=== PATIENT | male | born 1945 | race African-American/Black ===

== ENCOUNTER 2018-10-17 16:57 | Emergency (ER) | payer MEDICARE ==
[~2018-10-17] VITALS: Ht 188 cm; Wt 104.3 kg
--- OUTSIDE RECORDS SUMMARY | 2018-10-17 17:00 | XMS REPORT ---
Author Author [facility] Address Unknown Phone Unavailable Care Team Providers Care It Portfolio Manager Name Role Phone RASHEEDA GALLEGOS Unavailable Unavailable ZACHERY KAMARA Unavailable Unavailable Problems This patient has no known problems. Allergies, Adverse Reactions, Alerts This patient has no known allergies or adverse reactions. Medications This patient has no known medications. Encounters Start Date/Time End Date/Time Encounter Type Admission Type Attending Clinicians Care Facility Care Department Encounter ID 2017-06-10 15:11:49 2017-06-10 15:11:49 Outpatient [facility] [id number] 2017-06-09 15:47:37 2017-06-09 15:47:37 Emergency [facility] [id number] 2017-06-09 15:44:43 2017-06-09 15:44:43 Emergency [facility] [id number] 2017-06-09 13:24:20 2017-06-09 13:24:20 Outpatient [facility] [id number] Results Test Description Test Time Test Comments Text Results Atomic Results Result Comments TISSUE EXAM 2018-07-03 15:14:00 Surgical Pathology Report Case: [id number] Authorizing Provider: Rasheeda Gallegos MD Collected: 07/02/2018 0854 Ord ering Location: [facility] Received: 07/02/2018 1454 Pathologist: Prosper Alves MD Specimen: Lung, Left Lower Lobe, LLL LUNG BX - MASS PART A LEFT LOWER LOBE LUNG, 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 Signing Pathologist Direct Phone Line: [phone] signed by Prosper Alves MD on 07/03/2018 at 3:14 PMImmunohistochemical studies performed on block A1 demonstrate the n eoplastic cells to be positive for synaptophysin and chromogranin. They are negative for TTF1 and Napsin A. Proliferative index by Ki-67 is less than 2%. Mitotic index is counted at less than 1 per 10 high power field. 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 Clinical correlation is required. This case was reviewed with Dr. Mercy Marsh. [id number], 88530, [id number], [id number] of lung on imaging study Left lower lobe lung biopsy mass The specimen is received in a formalin-filled container labeled with the patient's information and labeled "left lower lobe lung biopsy mass" and consists of multiple fragments of hood-red soft tissue ranging from less than 0.1 to 0.2 cm, submitted entirely in A1. CG/ew Performed. The interpretation of this case included the use of immunohistochemistry or special stains. BLOCK A1- TTF1, NAPSIN A, KI-67, CHROMOGRANIN, SYNAPTOPHYSIN.Immunohistochemistry technical testing was performed at [facility], Pathology Laboratory where it was developed and its performance characteristics were determined. It has not been cleared or approved by the U.S. Food and Drug Administration. The FDA has determined that such clearance or approval is not necessary. The test is used for clinical purposes. It should not be regarded as investigational or for research. This laboratory is certified under the Clinical Laboratory Improvement Amendments of 1988 (CLIA-88) as qualified to perform high complexity clinical laboratory testing. POCT-GLUCOSE METER 2018-07-02 09:42:00 POC-GLUCOSE METER (BEAKER) (test wrfz=4223) 121 mg/dL 70-110 TESTED AT [facility] [address] [facility] [address] BASIC METABOLIC [id number] 08:13:00* Test Item Value Reference Range Comments SODIUM (BEAKER) (test qxbh=161) 142 meq/L 136-145 POTASSIUM (BEAKER) (test ahio=112) 5.0 meq/L 3.5-5.1 CHLORIDE (BEAKER) (test ozag=284) 110 meq/L 98-107 CO2 (BEAKER) (test dkfy=674) 22 meq/L 22-29 BLOOD UREA NITROGEN (BEAKER) (test ongp=504) 83 mg/dL 7-21 CREATININE (BEAKER) (test dhbv=272) 8.10 mg/dL 0.57-1.25 GLUCOSE RANDOM (BEAKER) (test ihuk=441) 115 mg/dL 70-105 CALCIUM (BEAKER) (test adnq=447) 8.8 mg/dL 8.4-10.2 EGFR (BEAKER) (test ddir=8548) 8 mL/min/1.73 sq m ESTIMATED GFR IS NOT ACCURATE CREATININE CLEARANCE IN PREDICTING GLOMERULAR FILTRATION RATE. ESTIMATED GFR IS NOT APPLICABLE FOR DIALYSIS PATIENTS. [id number] 08:02:00* Test Item Value Reference Range Comments PARTIAL THROMBOPLASTIN TIME (BEAKER) (test rlne=519) 36.0 seconds 22.5-36.0 PROTHROMBIN TIME/[id number] 08:01:00* Test Item Value Reference Range Comments PROTIME (BEAKER) (test dwws=142) 13.8 seconds 11.7-14.7 INR (BEAKER) (test qhlu=048) 1.1 <=5.9 RECOMMENDED COUMADIN/WARFARIN INR THERAPY RANGESSTANDARD DOSE: 2.0 - 3.0 Inclu lo: PROPHYLAXIS for venous thrombosis, systemic embolization; TREATMENT for jacob ous thrombosis and/or pulmonary embolus.HIGH RISK: Target INR is 2.5-3.5 for pat ients with mechanical heart valves.CBC W/PLT COUNT & AUTO [id number] 07:57:00* Test Item Value Reference Range Comments WHITE BLOOD CELL COUNT (BEAKER) (test geyv=958) 9.2 K/ L 3.5-10.5 RED BLOOD CELL COUNT (BEAKER) (test eqja=557) 2.82 M/ L 4.63-6.08 HEMOGLOBIN (BEAKER) (test wvgr=388) 8.3 GM/DL 13.7-17.5 HEMATOCRIT (BEAKER) (test dbme=005) 26.9 % 40.1-51.0 MEAN CORPUSCULAR VOLUME (BEAKER) (test xjyx=278) 95.4 fL 79.0-92.2 MEAN CORPUSCULAR HEMOGLOBIN (BEAKER) (test pmds=086) 29.4 pg 25.7-32.2 MEAN CORPUSCULAR HEMOGLOBIN CONC (BEAKER) (test vkqq=049) 30.9 GM/DL 32.3-36.5 RED CELL DISTRIBUTION WIDTH (BEAKER) (test vwpx=590) 16.8 % 11.6-14.4 PLATELET COUNT (BEAKER) (test ysbd=407) 199 K/CU MM 150-450 MEAN PLATELET VOLUME (BEAKER) (test pois=081) 11.2 fL 9.4-12.4 NUCLEATED RED BLOOD CELLS (BEAKER) (test bliq=360) 0 /100 WBC 0-0 NEUTROPHILS RELATIVE PERCENT (BEAKER) (test ocyu=197) 72 % LYMPHOCYTES RELATIVE PERCENT (BEAKER) (test awvm=397) 18 % MONOCYTES RELATIVE PERCENT (BEAKER) (test qmfy=560) 8 % EOSINOPHILS RELATIVE PERCENT (BEAKER) (test wnem=999) 2 % BASOPHILS RELATIVE PERCENT (BEAKER) (test hdmo=527) 0 % NEUTROPHILS ABSOLUTE COUNT (BEAKER) (test ocfo=213) 6.61 K/ L 1.78-5.38 LYMPHOCYTES ABSOLUTE COUNT (BEAKER) (test peau=655) 1.68 K/ L 1.32-3.57 MONOCYTES ABSOLUTE COUNT (BEAKER) (test usqp=899) 0.73 K/ L 0.30-0.82 EOSINOPHILS ABSOLUTE COUNT (BEAKER) (test ebyk=449) 0.14 K/ L 0.04-0.54 BASOPHILS ABSOLUTE COUNT (BEAKER) (test aplh=731) 0.04 K/ L 0.01-0.08 IMMATURE GRANULOCYTES-RELATIVE PERCENT (BEAKER) (test ttzq=5985) 0 % 0-1 POTASSIUM-STAT [id number] 07:51:00* Test Item Value Reference Range Comments POTASSIUM (BEAKER) (test wwic=988) 4.9 meq/L 3.6-5.5 POCT-GLUCOSE [id number] 07:44:00* Test Item Value Reference Range Comments POC-GLUCOSE METER (BEAKER) (test vyka=7455) 149 mg/dL 70-110 TESTED AT [facility] [address] [facility] [address] HGB/HCT (H&H) - STAT [id number] 11:23:00* Test Item Value Reference Range Comments HEMOGLOBIN (BEAKER) (test ifsk=635) 8.8 g/dL 13.0-16.8 HEMATOCRIT (BEAKER) (test ywnq=592) 26.0 % 40.0-50.0 GLUCOSE-STAT [id number] 11:22:00* Test Item Value Reference Range Comments GLUCOSE RANDOM (BEAKER) (test hizp=103) 101 mg/dL 70-110 POTASSIUM-STAT [id number] 11:22:00* Test Item Value Reference Range Comments POTASSIUM (BEAKER) (test uhur=802) 4.6 meq/L 3.6-5.5 GLUCOSE-STAT [id number] 07:28:00* Test Item Value Reference Range Comments GLUCOSE RANDOM (BEAKER) (test pxnb=622) 97 mg/dL 70-110 POTASSIUM-STAT [id number] 07:28:00* Test Item Value Reference Range Comments POTASSIUM (BEAKER) (test tjtz=952) 4.4 meq/L 3.6-5.5 HGB/HCT (H&H) - STAT [id number] 07:28:00* Test Item Value Reference Range Comments HEMOGLOBIN (BEAKER) (test hzny=609) 9.0 g/dL 13.0-16.8 HEMATOCRIT (BEAKER) (test zsvz=466) 26.0 % 40.0-50.0
--- OUTSIDE RECORDS SUMMARY | 2018-10-17 17:00 | XMS REPORT | Clinical Summary ---
Author Author [facility] Address Unknown Phone Unavailable Care Team Providers Care Core Inspector Name Role Phone Max Grace PCP Garrett Paez Davonte Unavailable Allergies No Known Allergies Medications End Date Status Medication Sig Dispensed Refills Start Date Active aspirin-calcium carbonate Take 81 mg by 0 81 mg-300 mg calcium(777 mouth. 2 mg) Tab Active atorvastatin (LIPITOR) 10 Take 20 mg by 0 MG tablet mouth . 7 Active calcitriol (ROCALTROL) 0 0.25 MCG capsule 8 Active dilTIAZem (CARDIZEM CD) 0 240 MG 24 hr capsule 8 Active lansoprazole (PREVACID) TAKE ONE 0 30 MG capsule CAPSULE BY 7 MOUTH DAILY Active tamsulosin (FLOMAX) 0.4 TAKE 1 0 mg Cp24 24 hr capsule CAPSULE BY 8 MOUTH DAILY Active insulin glargine (LANTUS INJECT 8 0 SOLOSTAR) 100 unit/mL (3 UNITS UNDER 8 mL) InPn THE SKIN EVERY MORNING AND 26 UNITS UNDER THE SKIN EVERY EVENING Active losartan (COZAAR) 100 MG TAKE ONE 0 tablet TABLET BY 7 MOUTH EVERY MORNING Active cholecalciferol (VITAMIN Take 1,000 0 D3) 1,000 unit tablet Units by mouth. Active ranitidine (ZANTAC) 300 TAKE ONE 0 MG tablet TABLET BY 7 MOUTH EVERY NIGHT AT BEDTIME Active Missing or Non-Formulary Take 27 mg by 0 Medication mouth daily Iron bid . Active finasteride (PROSCAR) 5 Take 5 mg by 0 mg tablet mouth daily. Active furosemide (LASIX) 20 MG Take 20 mg by 0 tablet mouth 2 (two) times daily. Active carvedilol (COREG) 25 MG Take 25 mg by 0 tablet mouth 2 (two) times daily with breakfast and dinner. 12/28/2017 acetaminophen-codeine Take 1-2 30 tablet 0 (TYLENOL #3) 300-30 mg tablets by 8 per tablet mouth every 4 (four) hours as needed for up to 10 days. Max Daily Amount: 12 tablets Active Problems Problem Noted Date ESRD (end stage renal disease) 12/18/2017 Encounters Care Team Description Date Type Specialty Janna Hartley MD 07/02/2018 Anesthesia Gastroenterology Event Darrian Grey MD BRONCHOSCOPY,BIOPSY 07/02/2018 Surgery Gastroenterology Darrian Grey MD 07/02/2018 Hospital Gastroenterology Encounter Jelena Monroe MD Post-operative state (Primary Dx) 01/11/2018 Office Visit Cardiology Jelena Monroe MD ESRD (end stage renal disease) (HCC) (Primary Dx) 12/26/2017 Office Visit Cardiology Jelena Monroe MD CREATION,A-V FISTULA BY BASILIC VEIN TRANSPOSITION 12/18/2017 Surgery Jordon Chicas MD 12/18/2017 Anesthesia Event Jelena Monroe MD 12/18/2017 Hospital Encounter Jelena Monroe MD 12/17/2017 Orders Only Cardiology Pam Ponce II, MD Kurian, Debbie Geevarghese, MD ESRD (end stage renal disease) (HCC) (Primary Dx) 12/07/2017 Evaluation Transplant Samanta Rodriguez Kidney Transplant Pre-evaluation 11/23/2017 Telephone Transplant Jelena Monroe MD Pre-op exam (Primary Dx) 11/16/2017 Office Visit Cardiology 11/16/2017 Orders Only General Internal Medicine Jelena Monroe MD 11/02/2017 Outside Orders Cardiology Samanta Rodriguez 10/31/2017 Abstract Transplant Samanta Rodriguez 10/31/2017 Abstract Transplant Barbie Hanley MD Chronic kidney disease, stage V (HCC) (Primary Dx) 10/19/2017 Outside Orders Radiology after 10/16/2017 Family History Medical History Relation Name Comments No Known Problem Brother Kidney disease Father Cancer Mother breast Hypertension Mother Neuropathy Sister Negrita Relation Name Status Comments Brother Father Mother Sister Negrita Alive Social History Date Tobacco Use Types Packs/Day Years Used Former Smoker Smokeless Tobacco: Never Used Comments: stopped 20 years ago Alcohol Use Drinks/Week oz/Week Comments No Sex Assigned at Date Recorded Not on file Industry Job Start Date Occupation Not on file Not on file Not on file Travel End Travel History Travel Start No recent travel history available. Last Filed Vital Signs Time Taken Vital Sign Reading 07/02/2018 11:00 AM [facility] Blood Pressure 145/70 07/02/2018 11:00 AM [facility] Pulse 68 07/02/2018 11:00 AM [facility] Temperature 36.2 C (97.1 F) 07/02/2018 11:00 AM [facility]ER Respiratory Rate 16 07/02/2018 11:00 AM [facility]ER Oxygen Saturation 95% - Inhaled Oxygen - Concentration 07/02/2018 7:44 AM [facility]ARY DRILLER Weight 110.2 kg (242 lb 15.2 oz) 07/02/2018 7:44 AM [facility]ER Height 188 cm (6' 2") 07/02/2018 7:44 AM [facility]ARY DRILLER Body Mass Index 31.19 Plan of Treatment Not on file Procedures Comments Procedure Name Priority Date/Time Associated Diagnosis POCT-GLUCOSE METER Routine 07/02/2018 9:40 AM [facility] D[facility]LLER REPORT OF PROCEDURE - 07/02/2018 ENDOSCOPY URL 9:30 AM [facility] D[facility]LLER TISSUE EXAM AP Routine 07/02/2018 8:54 AM [facility]ARY DRILLER BRONCHOSCOPY,BIOPSY 07/02/2018 Opacity of lung on 8:00 AM [facility]ER imaging study POCT-GLUCOSE METER Routine 07/02/2018 7:40 AM [facility]OTARY DRILLER BASIC METABOLIC PANEL (7) STAT 07/02/2018 7:35 AM ROTARY DRILLER CBC W/PLT COUNT & AUTO Routine 07/02/2018 DIFFERENTIAL 7:29 AM [facility]ARY DRILLER APTT Routine 07/02/2018 7:29 AM [facility]ARY DRILLER PROTHROMBIN TIME/INR Routine 07/02/2018 7:29 AM [facility]ARY DRILLER CBC W/PLT COUNT & AUTO Routine 07/02/2018 DIFFERENTIAL 7:29 AM [facility]OTARY DRILLER POTASSIUM-STAT LAB Routine 07/02/2018 7:29 AM [facility]ARY DRILLER TRANSFUSION SERVICE 12/19/2017 REPORT - SCAN 6:03 PM CDT GLUCOSE-STAT LAB STAT 12/18/2017 11:18 AM CDT HGB/HCT (H&H) - STAT LAB STAT 12/18/2017 11:18 AM CDT POTASSIUM-STAT LAB STAT 12/18/2017 11:18 AM CDT CREATION,A-V FISTULA BY 12/18/2017 ESRD (end stage renal BASILIC VEIN 8:00 AM CDT disease) (HCC) TRANSPOSITION TYPE AND SCREEN, STAT 12/18/2017 AUTOMATED 7:18 AM CDT HGB/HCT (H&H) - STAT LAB STAT 12/18/2017 7:18 AM CDT GLUCOSE-STAT LAB STAT 12/18/2017 7:18 AM CDT POTASSIUM-STAT LAB STAT 12/18/2017 7:18 AM CDT ECG 12-LEAD Routine 11/16/2017 Pre-op exam 11:58 AM CDT ECG 12-LEAD Routine 11/16/2017 11:58 AM CDT Procedure Note - Interface, External Ris In - 11/16/2017 11:57 AM CDT Ventricula r Rate 69 BPM Atrial Rate 69 BPM P-R Interval 224 ms QRS Duration 86 ms Q-T Interval 406 ms QTC Calculatio n(Bazett) 435 ms P Osgood 68 degrees R Osgood 41 degrees T Osgood 43 degrees Sinus rhythm with 1st degree A-V block Otherwise normal ECG When compared with ECG of 0 19:57, [place] interval has increased Vent. rate has decreased BY 38 BPM PERIPHERAL VASCULAR 10/25/2017 REPORT - SCAN 3:20 PM CDT VEIN MAPPING ARM/ARMS Routine 10/25/2017 Chronic kidney disease, 2:12 PM CDT stage V (HCC) after 10/16/2017 Results * POC-Glucose meter (07/02/2018 9:40 AM ROTARY DRILLER) Only the most recent of 2 results within the time period is included. POC-Glucose Meter 121 (H)Comment: TESTED AT 70 - 110 mg/dL [facility] [address] [facility] [address] Specimen Blood Performing Organization Address City/State/Zipcode Phone Number [facility] [address] [place] [address] [facility] * REPORT OF PROCEDURE - ENDOSCOPY URL (07/02/2018 9:30 AM ROTARY DRILLER) Narrative Performed At * Tissue Exam (07/02/2018 8:54 AM ROTARY DRILLER) Case Report Surgical Pathology [facility] Report [facility] Case: [id number] Authorizing Provider:Darrian Grey MDCollecte d: 07/02/2018 0854 [facility] ENDOS[facility] SERVICESReceived: 07/02/2018 1454 Pathologist: Prosper Alves MD Specimen:Lung, Left Lower Lobe, LLL LUNG BX - MASS DIAGNOSIS PART A LEFT LOWER LOBE LUNG, [facility] BIOPSY FOR SUSPECTED MASS: [facility]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 SEE DIAGNOSTIC COMMENT. 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 Mercy Marsh. CPT Code(s) 94002, 77619, [id number], 79083 [facility] CLINICAL HISTORY Opacity of lung on imaging [facility] study [facility] SPECIMEN SOURCE Left lower lobe lung biopsy [facility] mass [facility] GROSS DESCRIPTION The specimen is received in a [facility] formalin-filled container [facility] labeled with the patient's information and labeled "left lower lobe lung biopsy mass" and consists of multiple fragments of hood-red soft tissue ranging from less than 0.1 to 0.2 cm, submitted entirely in A1. CG/ew MICROSCOPIC DESCRIPTION Performed. [facility] SPECIAL STUDIES The interpretation of this [facility] case included the use of [facility] immunohistochemistry or special stains. BLOCK A1- TTF1, NAPSIN A, KI-67, CHROMOGRANIN, SYNAPTOPHYSIN. Immunohistochemistry technical testing was performed at [facility], Pathology Laboratory where it was developed and [...] to perform high complexity clinical laboratory testing. Specimen Tissue Performing Organization Address City/State/Zipcode Phone Number [facility] [address] [place] [address] [facility] * Basic Metabolic Panel (07/02/2018 7:35 AM ROTARY DRILLER) Sodium 142 136 - 145 meq/L [facility] Potassium 5.0 3.5 - 5.1 meq/L [facility] Chloride 110 (H) 98 - 107 meq/L [facility] CO2 22 22 - 29 meq/L [facility] BUN 83 (H) 7 - 21 mg/dL [facility] Creatinine 8.10 (H) 0.57 - 1.25 mg/dL [facility] Glucose 115 (H) 70 - 105 mg/dL [facility] Calcium 8.8 8.4 - 10.2 mg/dL [facility] EGFR 8Comment: ESTIMATED GFR IS NOT mL/min/1.73 sq m [facility] ACCURATE CREATININE [facility] CLEARANCE IN PREDICTING GLOMERULAR FILTRATION RATE. ESTIMATED GFR IS NOT APPLICABLE FOR DIALYSIS PATIENTS. Specimen Blood Performing Organization Address [facility] Cent[facility]ode Phone Number [address] [address] [facility] * Potassium-Stat Lab (07/02/2018 7:29 AM ROTARY DRILLER) Only the most recent of 3 results within the time period is included. Potassium 4.9 3.6 - 5.5 meq/L [facility] Specimen Blood, Arterial Performing Organization Address City/[facility] Centercode Phone Number [address] [address] [facility] * CBC with platelet count + automated diff (07/02/2018 7:29 AM ROTARY DRILLER) WBC 9.2 3.5 - 10.5 K/L [facility] RBC 2.82 (L) 4.63 - 6.08 M/L [facility] Hemoglobin 8.3 (L) 13.7 - 17.5 GM/DL [facility] Hematocrit 26.9 (L) 40.1 - 51.0 % [facility] MCV 95.4 (H) 79.0 - 92.2 fL [facility] MCH 29.4 25.7 - 32.2 pg [facility] MCHC 30.9 (L) 32.3 - 36.5 GM/DL [facility] RDW 16.8 (H) 11.6 - 14.4 % [facility] Platelets 199 150 - 450 K/CU MM [facility] MPV 11.2 9.4 - 12.4 fL [facility] nRBC 0 0 - 0 /100 WBC [facility] % Neutros 72 % [facility] % Lymphs 18 % [facility] % Monos 8 % [facility] % Eos 2 % [facility] % Baso 0 % [facility] # Neutros 6.61 (H) 1.78 - 5.38 K/L [facility] # Lymphs 1.68 1.32 - 3.57 K/L [facility] # Monos 0.73 0.30 - 0.82 K/L [facility] # Eos 0.14 0.04 - 0.54 K/L [facility] # Baso 0.04 0.01 - 0.08 K/L [facility] Immature 0 0 - 1 % [facility] Granulocytes-[facility] Specimen Blood Performing Organization Address City/State/Zipcode Phone Number [address] * aPTT (07/02/2018 7:29 AM ROTARY DRILLER) PTT 36.0 22.5 - 36.0 seconds [facility] Specimen Blood Performing Organization Address City/State/Zipcode Phone Number [place] [phone] * Prothrombin time/INR (07/02/2018 7:29 AM ROTARY DRILLER) Protime 13.8 11.7 - 14.7 seconds [facility] INR 1.1 <=5.9 [facility] Specimen Blood Narrative Performed At RECOMMENDED COUMADIN/WARFARIN INR THERAPY RANGES [facility] STANDARD DOSE: 2.0 - 3.0 Includes: PROPHYLAXIS for venous thrombosis, [facility] systemic embolization; TREATMENT for venous thrombosis and/or pulmonary embolus. HIGH RISK: Target INR is 2.5-3.5 for patients with mechanical heart valves. Performing Organization Address City/[facility]/Zipcode Phone Number [address] * TRANSFUSION SERVICE REPORT - SCAN (12/19/2017 6:03 PM CDT) Narrative Performed At * Glucose-Stat Lab (12/18/2017 11:18 AM CDT) Only the most recent of 2 results within the time period is included. Glucose 101 70 - 110 mg/dL [facility] Specimen Blood, Arterial Performing Organization Address [facility] Centercomo Phone Number [address] * HGB/HCT (H&H)-Stat Lab (12/18/2017 11:18 AM CDT) Only the most recent of 2 results within the time period is included. Hemoglobin 8.8 (L) 13.0 - 16.8 g/dL [facility] Hematocrit 26.0 (L) 40.0 - 50.0 % [facility] Specimen Blood, Arterial Performing Organization Address [facility] Phone Number [address] * Type and screen, automated (12/18/2017 7:18 AM CDT) ABO/RH AUTOMATED (BEAKER) O POSITIVE [facility] Ab Scrn NEGATIVE [facility] Specimen Blood Performing Organization Address City/[facility] Centercode Phone Number [address] * ECG 12 lead (11/16/2017 11:58 AM CDT) Specimen Narrative Performed At Ventricular Rate 69 BPM GE MUSE Atrial Rate 69 BPM P-R Interval 224 ms QRS Duration 86 ms Q-T Interval 406 ms QTC Calculation(Bazett) 435 ms P Osgood 68 degrees R Osgood 41 degrees T Osgood 43 degrees Sinus rhythm with 1st degree A-V block Otherwise normal ECG When compared with ECG of 30-DEC-2009 19:57, [place] interval has increased Vent. rate has decreased BY38 BPM Confirmed by Antonino BLACKMON BASANT ([id number]) on 11/16/2017 1:04:57 PM Procedure Note Interface, External Ris In - 11/16/2017 1:05 PM CDT Ventricular Rate 69 BPM Atrial Rate 69 BPM P-R Interval 224 ms QRS Duration 86 ms Q-T Interval 406 ms QTC Calculation(Bazett) 435 ms P Osgood 68 degrees R Osgood 41 degrees T Osgood 43 degrees Sinus rhythm with 1st degree A-V block Otherwise normal ECG When compared with ECG of 30-DEC-2009 19:57, [place] interval has increased Vent. rate has decreased BY 38 BPM Confirmed by Antonino BLACKMON BASANT ([id number]) on 11/16/2017 1:04:57 PM Performing Organization Address City/State/Zipcode Phone Number [employer] * PERIPHERAL VASCULAR REPORT - SCAN (10/25/2017 3:20 PM CDT) Narrative Performed At * Vein mapping arm/arms (10/25/2017 2:12 PM CDT) Ejection Fraction [facility] Specimen Impressions Performed At Right Impression [facility] 1. There is no deep venous obstruction in the jugular, subclavian, axillary, [facility] brachial, radial or ulnar veins. 2. There is no superficial venous obstruction in the cephalic or basilic veins. 3. The subclavian, axillary, brachial, radial and ulnar arteries are patent with normal triphasic Doppler waveforms throughout. Left Impression 1. There is no deep venous obstruction in the jugular, subclavian, axillary, brachial, radial or ulnar veins. 2. There is no superficial venous obstruction in the cephalic or basilic veins. 3. The subclavian, axillary, brachial, radial and ulnar arteries are patent with normal triphasic Doppler waveforms throughout. Conclusions Summary Arterial duplex imaging, venous duplex imaging and compression of both upper extremities was performed. All arteries and veins were adequately visualized. The arteries were patent with normal triphasic Doppler waveforms bilaterally. The venous systems were patent and compressible with no evidence of thrombus bilaterally. Superficial venous measurements are documented below. Signature Velocities are measured in cm/s ; Diameters are measured in cm Cephalic Mapping Right Left + + + + + + + + !Location ! !AP Diam!Trans Diam! !AP Diam!Trans Diam! + + + + + + + + !Cephalic at Prox UA ! ! !0.29! ! !0.23! + + + + + + + + !Cephalic at Mid UA ! ! !0.17! ! !0.12! + + + + + + + + !Cephalic at Dist UA ! ! !0.1 ! ! !0.13! + + + + + + + + !Cephalic at Prox LA ! ! !0.3 ! ! !0.14! + + + + + + + + !Cephalic at Mid LA ! ! !0.49! ! !0.14! + + + + + + + + !Cephalic at Dist LA ! ! !0.22! ! !0.11! + + + + + + + + Basilic Mapping Right Left + + + + + + + + !Location ! !AP Diam!Trans Diam! !AP Diam!Trans Diam! + + + + + + + + !Basilic at Prox UA ! ! !0.75! ! !0.52! + + + + + + + + !Basilic at Mid UA ! ! !0.68! ! !0.31! + + + + + + + + !Basilic at Dist UA ! ! !0.5 ! ! !0.28! + + + + + + + + !Basilic at Prox LA ! ! !0.23! ! !0.16! + + + + + + + + !Basilic at Mid LA ! ! !0.24! ! !0.19! + + + + + + + + !Basilic at Dist LA ! ! !0.16! ! !0.11! + + + + + + + + Narrative Performed At PV LAB - Upper Extremities Vein Mapping [facility] Demographics ZULEYMACKPATRICIA CPACS Patient NameSHANNON SOLORIO Date of Study 10/25/2017 Age 72 Visit [id number] GenderMale Date of 1945 [facility] Physician Tax Professional Zofia Renner InterpretingTawanna Singh RN, Stephanie CARRERO, RPVI Procedure Type of Study: Veins: Upper Extremities Veins, Upper Extremity Vein Mapping, VEIN MAPPING ARM/ARMS. Indications for Study:CKD. Patient Status:Routine. Study Location:Vascular Lab. Technical Quality:Adequate visualization. Risk Factors History of Disease + +----+--------+ !Diagnosis !Date!Comments! + +----+--------+ !History/Risk Factors: !!CKD ! + +----+--------+ Procedure Note Interface, External Ris In - 10/25/2017 2:38 PM CDT PV LAB - Upper Extremities Vein Mapping Demographics Patient Name SHANNON SOLORIO Date of Study 10/25/2017 Age 72 Visit Number [id number] Gender Male Date of 1945 Number Referring [facility] Room Number Physician Tax Professional Zofia Renner Interpreting Tawanna Singh RN, RVT Physician , RPVI Procedure Type of Study: Veins: Upper Extremities Veins, Upper Extremity Vein Mapping, VEIN MAPPING ARM/ARMS. Indications for Study:CKD. Patient Status:Routine. Study Location:Vascular Lab. Technical Quality:Adequate visualization. Risk Factors History of Disease + +----+--------+ !Diagnosis !Date!Comments! + +----+--------+ !History/Risk Factors: ! !CKD ! + +----+--------+ Impressions Right Impression 1. There is no deep venous obstruction in the jugular, subclavian, axillary, brachial, radial or ulnar veins. 2. There is no superficial venous obstruction in the cephalic or basilic veins. 3. The subclavian, axillary, brachial, radial and ulnar arteries are patent with normal triphasic Doppler waveforms throughout. Left Impression 1. There is no deep venous obstruction in the jugular, subclavian, axillary, brachial, radial or ulnar veins. 2. There is no superficial venous obstruction in the cephalic or basilic veins. 3. The subclavian, axillary, brachial, radial and ulnar arteries are patent with normal triphasic Doppler waveforms throughout. Conclusions Summary Arterial duplex imaging, venous duplex imaging and compression of both upper extremities was performed. All arteries and veins were adequately visualized. The arteries were patent with normal triphasic Doppler waveforms bilaterally. The venous systems were patent and compressible with no evidence of thrombus bilaterally. Superficial venous measurements are documented below. Signature Velocities are measured in cm/s ; Diameters are measured in cm Cephalic Mapping Right Left + + + + + + + + !Location ! !AP Diam !Trans Diam ! !AP Diam !Trans Diam ! + + + + + + + + !Cephalic at Prox UA ! ! !0.29 ! ! !0.23 ! + + + + + + + + !Cephalic at Mid UA ! ! !0.17 ! ! !0.12 ! + + + + + + + + !Cephalic at Dist UA ! ! !0.1 ! ! !0.13 ! + + + + + + + + !Cephalic at Prox LA ! ! !0.3 ! ! !0.14 ! + + + + + + + + !Cephalic at Mid LA ! ! !0.49 ! ! !0.14 ! + + + + + + + + !Cephalic at Dist LA ! ! !0.22 ! ! !0.11 ! + + + + + + + + Basilic Mapping Right Left + + + + + + + + !Location ! !AP Diam !Trans Diam ! !AP Diam !Trans Diam ! + + + + + + + + !Basilic at Prox UA ! ! !0.75 ! ! !0.52 ! + + + + + + + + !Basilic at Mid UA ! ! !0.68 ! ! !0.31 ! + + + + + + + + !Basilic at Dist UA ! ! !0.5 ! ! !0.28 ! + + + + + + + + !Basilic at Prox LA ! ! !0.23 ! ! !0.16 ! + + + + + + + + !Basilic at Mid LA ! ! !0.24 ! ! !0.19 ! + + + + + + + + !Basilic at Dist LA ! ! !0.16 ! ! !0.11 ! + + + + + + + + Performing Organization Address City/State/Zipcode Phone Number [facility] after 10/16/2017 Insurance Payer Benefit Subscriber ID Type Phone Address Plan / Group [facility] [place] MEDIC[facility] ADV Advance Directives For more information, please contact: [facility] [address] [place] [address] Date Inactivated Comments Code Status Date Activated 01/11/2018 12:24 PM Full Code 12/18/2017 6:07 AM This code status was determined by: Patient
[2018-10-17 17:33] LABS: BASOPHILS % 0.4 % (0.0-1.0); EOSINOPHILS # (AUTO) 0.1 (0.0-0.4); EOSINOPHILS % 1.1 % (0.0-6.0); HEMATOCRIT 35.6 % (38.2-49.6); HEMOGLOBIN 11.6 g/dL (14.0-18.0); LYMPHOCYTES # (AUTO) 2.1 (1.0-3.2); LYMPHOCYTES % 22.3 % (18.0-39.1); MEAN CORPUSCULAR HEMOGLOBIN 30.7 pg (28-32); MEAN CORPUSCULAR HGB CONC 32.6 g/dL (31-35); MEAN CORPUSCULAR VOLUME 94.2 fL (81-99); MONOCYTES # (AUTO) 0.8 (0.2-0.8); NEUTROPHILS # (AUTO) 6.3 (2.1-6.9); NEUTROPHILS % 66.8 % (38.7-80.0); PLATELET COUNT 242 x10e3/uL (140-360); RED BLOOD COUNT 3.78 x10e6/uL (4.3-5.7); RED CELL DISTRIBUTION WIDTH 15.9 % (11.7-14.4)
[2018-10-17 17:39] LABS: INR 0.92; PARTIAL THROMBOPLASTIN TIME 36.8 seconds (23.8-35.5); PROTHROMBIN TIME 12.9 seconds (11.9-14.5)
[2018-10-17 17:47] LABS: ALBUMIN 3.5 g/dL (3.5-5.0); ALBUMIN/GLOBULIN RATIO 0.8 (0.8-2.0); ANION GAP 19.3 mmol/L (8-16); CREATININE, SERUM 10.14 mg/dL (0.72-1.25); MAGNESIUM 2.3 MG/DL (1.3-2.1); POTASSIUM 4.3 mmol/L (3.5-5.1)
[2018-10-17 18:06] LABS: CREATINE KINASE MB 1.3 ng/mL (0-5.0); THYROID STIMULATING HORMONE 0.721 uIU/mL (0.350-4.940)
--- NOTE | 2018-10-17 18:31 | Diagnostic Imaging Report ---
Frontal and lateral views of the chest. HISTORY: Palpitations COMPARISON: None available. DISCUSSION: Overlying monitoring leads. Lungs: The lungs are well inflated. No evidence of a consolidative pneumonia or pulmonary alveolar edema. Pleura: No pleural effusion or pneumothorax. Heart and mediastinum: The cardiomediastinal silhouette appears unremarkable. Bones and soft tissues: DISH (Diffuse idiopathic skeletal hyperostosis). IMPRESSION: No acute radiographic abnormality. Signed by: Dr. Tiago Cruz D.O., M.M.M. on 10/17/2018 6:27 PM
[2018-10-17] MEDS ORDERED: METOPROLOL TARTRATE INJ 1 MG/ML VIAL ONE (19:57)
[2018-10-17] MEDS ORDERED: METOPROLOL TARTRATE INJ 1 MG/ML VIAL IV ONE (20:00)
== END 2018-10-17 21:15 | disposition home or self-care (01) ==
LOC: ER 16:57
DX: R00.0 Tachycardia, unspecified (principal); I12.0 Hypertensive chronic kidney disease with stage 5 chronic kidney disease or end stage renal disease; E11.22 Type 2 diabetes mellitus with diabetic chronic kidney disease; N18.6 End stage renal disease; Z99.2 Dependence on renal dialysis; Z85.118 Personal history of other malignant neoplasm of bronchus and lung
CPT/HCPCS: 36415; 71046; 80053; 82550; 82553; 83735; 84443; 84484; 85025; 85610; 85730; 93005; 99284